=== PATIENT | female | born 1990 | race Caucasian/White ===

== ENCOUNTER 2019-05-19 17:02 | Inpatient (IN) | payer OTHER ==
[2019-05-19 17:40] VITALS: BMI 25.0
--- NOTE | 2019-05-19 19:04 | HP ---
CIWA Score - Admission Criteria OASAS Guidelines: Admission for Medically Managed Detox: Requires at least one of the followin. CIWA greater than 12 2. Seizures within the past 24 hours 3. Delirium tremens within the past 24 hours 4. Hallucinations within the past 24 hours 5. Acute intervention needed for co occurring medical disorder 6. Acute intervention needed for co occurring psychiatric disorder 7. Severe withdrawal that cannot be handled at a lower level of care (continued vomiting, continued diarrhea, abnormal vital signs) requiring intravenous medication and/or fluids 8. Admission ROS S - HPI Chief Complaint: Seeking rehab services. Allergies/Adverse Reactions: Allergies Allergy/AdvReac Type Severity Reaction Status Date / Time No Known Allergies Allergy Verified 05/19/19 17:28 History of Present Illness: 28 y.o. woman with an extensive history of marijuana and cocaine dependence is here seeking rehab services. She reports she was at [facility] for rehab one month ago but left AMA after 2 days. Reports the longest period of illicit drug abstinence has been 5 years. Exam Limitations: No Limitations - Ebola screening Have you traveled outside of the country in the last 21 days: No (N) Have you had contact with anyone from an Ebola affected area: No Do you have a fever: No - Review of Systems Constitutional: No Symptoms Reported EENT: reports: No Symptoms Reported Respiratory: reports: No Symptoms reported Cardiac: reports: No Symptoms Reported GI: reports: No Symptoms Reported : reports: No Symptoms Reported Musculoskeletal: reports: No Symptoms Reported Integumentary: reports: No Symptoms Reported Neuro: reports: No Symptoms reported Endocrine: reports: No Symptoms Reported Hematology: reports: No Symptoms Reported Psychiatric: reports: other (Schizo-affective.) Other Systems: Reviewed and Negative Patient History - Patient Medical History Hx Anemia: No Hx Asthma: No Hx Chronic Obstructive Pulmonary Disease (COPD): No Hx Cancer: No Hx Cardiac Disorders: No Hx Congestive Heart Failure: No Hx Hypertension: No Hx Hypercholesterolemia: No Hx Pacemaker: No HX Cerebrovascular Accident: No Hx Seizures: No Hx Dementia: No Hx Diabetes: No Hx Gastrointestinal Disorders: Yes Hx Liver Disease: No Hx Genitourinary Disorders: No Hx Sexually Transmitted Disorders: No Hx Renal Disease (ESRD): No Hx Thyroid Disease: No Hx Human Immunodeficiency Virus (HIV): No Hx Hepatitis C: No Hx Depression: No Hx Suicide Attempt: No Hx Bipolar Disorder: No Hx Schizophrenia: Yes - Patient Surgical History Past Surgical History: No - PPD History Previous Implant?: Yes Documented Results: Negative w/o proof PPD to be Administered?: Yes - Reproductive History Patient is a Female of Child Bearing Age (11 -55 yrs old): Yes Last Menstrual Period: 11/18/18 Patient : No - Smoking Cessation Smoking history: Current every day smoker Have you smoked in the past 12 months: Yes Aproximately how many cigarettes per day: 5 Initiated information on smoking cessation: Yes 'Breaking Loose' booklet given: 05/19/19 - Substance & Tx. History Hx Alcohol Use: No Hx Substance Use: Yes Substance Use Type: Cocaine, Marijuana Hx Substance Use Treatment: Yes (Reports she left rehab AMA 1 montha ago.) - Substances abused Marijuana/Hashish Substance route: Smoking Frequency: Daily Amount used: 2 JOINTS Age of first use: 15 Date of last use: 05/17/19 Cocaine Substance route: Inhalation Frequency: 1-3 times last 30 days Amount used: $200 Age of first use: 16 Date of last use: 05/17/19 Family Disease History - Family Disease History Family History: Denies Admission Physical Exam [facility] - Vital Signs Vital Signs: Vital Signs - 24 hr 05/19/19 17:23 Temperature 97.9 F Pulse Rate 69 Respiratory 17 Rate Blood Pressure 103/61 - Diagnostic (1) GERD (gastroesophageal reflux disease) Current Visit: Yes Status: Chronic (2) Nicotine dependence Current Visit: Yes Status: Chronic (3) Marijuana dependence Current Visit: Yes Status: Chronic (4) Cocaine dependence Current Visit: Yes Status: Chronic Cleared for Admission [facility] - Detox or Rehab [facility] Level of Care: Observation Bed Detox Regimen/Protocol: Not Applicable Claeared for Rehab Admission: Yes Breathalyzer - Breathalyzer Breathalyzer: 0 Urine Drug Screen - Test Device Lot number: [id number] Expiration date: 01/14/21 - Control Is test valid?: Yes - Results Drug screen NEGATIVE: No Urine drug screen results: THC-Marijuana, HALLE-Cocaine Inpatient Rehab Admission - Rehab Decision to Admit Inpatient rehab admission?: Yes - Initial Determination Are CD services needed?: Yes Free of communicable disease: Yes Not in need of hospitalization: Yes - Rehab Admission Criteria Previous failed treatment: Yes Poor recovery environment: Yes Comorbidities: Yes Lacks judgement: Yes Patient is meeting Inpatient Rehab admission criteria:: Yes
[2019-05-19] MEDS ORDERED: ACETAMINOPHEN 325 MG TABLET (FP) PO PRN (19:05)
[2019-05-19] MEDS ORDERED: guaiFENesin 200 MG/10 ML 10 ML UNIT-DOSE CUPS PO PRN (19:05)
[2019-05-19] MEDS ORDERED: MAG HYDROX/AL HYDROX/SIMETH 30 ML UNIT-DOSE CUP PO PRN (19:05)
[2019-05-19] MEDS ORDERED: MENTHOL/PHENOL 1 EACH UD MM PRN (19:05)
[2019-05-19] MEDS ORDERED: IBUPROFEN 400 MG TABLET (FP) PO PRN (19:05)
[2019-05-19] MEDS ORDERED: MAGNESIUM HYDROX 2400MG/30ML ORAL SUSPENSION 30 ML CUP PO PRN (19:05)
[2019-05-19] MEDS ORDERED: MAGNESIUM CITRATE 300 ML BOTTLE PO PRN (19:05)
[2019-05-19] MEDS ORDERED: P-EPHED 60MG/TRIPROLIDI 2.5MG TABLET PO PRN (19:05)
[2019-05-19] MEDS ORDERED: LOPERAMIDE HCL 2 MG CAPSULE PO PRN (19:05)
[2019-05-19] MEDS ORDERED: NICOTINE POLACRILEX 2 MG GUM BC PRN (19:05)
[2019-05-19] MEDS ORDERED: MELATONIN 5 MG TABLETS PO PRN (22:00)
[2019-05-19] MEDS: THIAMINE HCL 100 MG TABLET (FP) PO SCH (22:34)
[2019-05-20 09:34] LABS: PH,URINE 5.5 (5.0-8.0); URINE APPEARANCE TURBID; URINE BILIRUBIN NEGATIVE (NEGATIVE); URINE COLOR YELLOW; URINE GLUCOSE (UA) NEGATIVE (NEGATIVE); URINE KETONE NEGATIVE (NEGATIVE); URINE LEUK ESTERASE NEGATIVE (NEGATIVE); URINE NITRITE NEGATIVE (NEGATIVE); URINE PROTEIN NEGATIVE (NEGATIVE)
[2019-05-20] MEDS: PANTOPRAZOLE 20 MG TABLET (FP) PO SCH (10:10)
[2019-05-20] MEDS: PRENATAL VITAMINS W/ FOLIC ACID TABLET (FP) PO SCH (10:10)
[2019-05-20] MEDS: NICOTINE 14 MG/24 HOURS TOPICAL PATCH TD SCH (10:11)
--- NOTE | 2019-05-20 10:26 | EKG ---
Test Reason : Blood Pressure : / mmHG Vent. Rate : 070 BPM Atrial Rate : 070 BPM P-R Int : 138 ms QRS Dur : 084 ms QT Int : 404 ms P-R-T Axes : 058 068 042 degrees QTc Int : 436 ms NORMAL SINUS RHYTHM EARLY REPOLARIZATION NO PREVIOUS ECGS AVAILABLE Confirmed by RAIZA KIM MD ([id number]) on 05/20/2019 10:26:20 AM Referred By: Confirmed By:RAIZA KIM MD
[2019-05-20 13:12] LABS: HEMATOCRIT 38.6 % (32.4-45.2); HEMOGLOBIN 12.6 GM/dL (10.7-15.3); MCH 28.9 pg (25.7-33.7); MCHC 32.8 g/dl (32.0-36.0); MEAN CELL VOLUME 88.3 fl (80-96); MEAN PLT VOLUME 9.9 fl (7.5-11.1); RBC 4.37 M/mm3 (3.60-5.2); RDW 13.5 % (11.6-15.6); WHITE BLOOD COUNT 8.9 K/mm3 (4.0-10.0)
[2019-05-20 13:18] LABS: ALBUMIN 3.6 g/dl (3.4-5.0); BILIRUBIN,TOTAL 0.4 mg/dL (0.2-1); BLOOD UREA NITROGEN 16.7 mg/dL (7-18); CALCIUM 8.9 mg/dL (8.5-10.1); CREATININE 0.7 mg/dL (0.55-1.3); POTASSIUM 4.1 mmol/L (3.5-5.1); TOT PROT 6.4 g/dl (6.4-8.2)
[2019-05-20 13:40] LABS: PLATELET COUNT 201 K/MM3 (134-434)
--- NOTE | 2019-05-20 14:01 | PN ---
S Progress Note Note: Psychiatric nurse practitioner note: [employer]idential [employer] Consultant attempted to speak to patient concerning psychiatric consultation. Patient refused. Stated to science writer, "I'm exhausted. We can speak tomorrow."
[2019-05-20] MEDS: THIAMINE HCL 100 MG TABLET (FP) PO SCH (21:46)
[2019-05-21 06:51] VITALS: BP 133/87; PULSE 81; TEMP 97.1
--- NOTE | 2019-05-21 09:13 | CONSULT ---
[facility] Psychiatric Consult - Data Date of interview: 05/21/19 Admission source: [facility] Identifying data: Patient is a 28 year old single female, without children, unemployed, and is currently homeless. This is patient's first admission to rehab at [facility]. Patient admitted to for marijuana and cocaine dependence. Substance Abuse History: Substance & Tx. History. Hx Alcohol Use: No. Hx Substance Use: Yes. Substance Use Type: Cocaine, Marijuana. Hx Substance Use Treatment: Yes (Reports she left rehab AMA 1 montha ago.). - Substances abused. Marijuana/Hashish. Substance route: Smoking. Frequency: Daily. Amount used: 2 JOINTS. Age of first use: 15. Date of last use: 05/17/19. Cocaine. Substance route: Inhalation. Frequency: 1-3 times last 30 days. Amount used: $200. Age of first use: 16. Date of last use: 05/17/19 Medical History: Denies. Reports good health. Psychiatric History: Patient's first psychiatric contact was at 17 years of age after feeling depressed and sad. She reports being hospitalized at [facility] for two months and prescribed psychotropic medications. At 19 years of age she was admitted to [facility] for six months after a suicide attempt (refusing to elaborate on her suicide attempt). After discharge she reports admission to a transitional living residence for approximately 6-12 months. Ms. Long reports additional psychiatric hospitalizations at [facility] in [place] and other facilities in [facility]. Patient reports past trials of lithium, wellbutrin, haldol, and reports now taking abilify maintena. States she last received the medication in March at [facility] while seeking a psychiatric evaluation. She denies admission to the psychiatric unit. Ms. Long reports past diagnosis of depression, anxiety, bipolar and schizophrenia. Patient is currently perseverating that her diagnosis is no longer schizophrenia and bipolar disorder. States she only has depression and anxiety. Patient appears to be slighly internally preoccupied and was noted to smile and laugh inappropriately during her interaction with teletypewriter operator although denies h/o auditory halluincation. Ms. Long reports past history of being followed by the ACT team ( 4-5 years ago) and was once receiving outpatient psychiatric care from [facility] in [place]. Patient stated she would sol the hospital and teletypewriter operator if she was diagnosed with schizophrenia because the diagnosis is not true and it would prevent her from being accepted into a skilled nursing residental program. Patient focused on skilled nursing residental treatment. Patient did report h/o visual hallucination which occured once while in her 20's. At present, patient denies auditory/visual hallucinations and suicidal/homicidal ideation. [employer] Specialist able to contact [facility] Medical records department. Medical records faxed over and reviewed by teletypewriter operator. Patient with a past psychiatric history of schizoaffective disorder, bipolar type. Additional diagnosis of Bipolar disorder with psychotic features. Patient with a history of auditory hallucinations and mood dyregulation. Ms. Long has been treated with abilify + Depakote+ Vistaril + Ambien. She also has a history of accepting abilify maintena 400mg. Patient with a history of noncompliance to treatment. Patient's most recent psychiatric contact was at [facility]. As per Medical records she was prescribed abilify 10mg + Depakote 500mg BID. Plan was to consider Aristada Long acting injectable. No documentation of abilify maintena given in March of 2019 despite patient stating she last received the medication in March. Physical/Sexual Abuse/Trauma History: denies. Mental Status Exam - Mental Status Exam Alert and Oriented to: Time, Place, Person Cognitive Function: Good Patient Appearance: Well Groomed Mood: Anxious, Irritable (slightly irritable when discussing her diagnosis) Affect: Flat Patient Behavior: Cooperative, Agitated (Cooperative throughout the interview but became agitated when discussing medication and diagnosis.) Speech Pattern: Appropriate Voice Loudness: Normal Thought Process: Goal Oriented Thought Disorder: Present (Possibly Internally preoccupied. But in control. not acutely psychotic.) Hallucinations: Denies Suicidal Ideation: Denies Homicidal Ideation: Denies Insight/Judgement: Poor Sleep: Fair Appetite: Fair Muscle strength/Tone: Normal Gait/Station: Normal Psychiatric Findings - Problem List ([place] 1, 2,3) (1) Schizoaffective disorder, bipolar type Current Visit: Yes Status: Chronic (2) Cocaine dependence Current Visit: Yes Status: Chronic (3) Marijuana dependence Current Visit: Yes Status: Chronic (4) Nicotine dependence Current Visit: Yes Status: Chronic - Initial Treatment Plan Initial Treatment Plan: Psychoeducation provided. Rehab in progress. Contact made with [facility] medical records department. Medical records faxed over to [facility]. Medical records reviewed by teletypewriter operator. Will initate treatment with Abilify 10mg HS + Depakote 500mg BID. Benefits and side effects discussed. Verbal consent given.
[2019-05-21] MEDS: NICOTINE 14 MG/24 HOURS TOPICAL PATCH TD SCH (09:59)
[2019-05-21] MEDS: PRENATAL VITAMINS W/ FOLIC ACID TABLET (FP) PO SCH (10:00)
[2019-05-21] MEDS: PANTOPRAZOLE 20 MG TABLET (FP) PO SCH (10:00)
[2019-05-21] MEDS: DIVALPROEX SODIUM 500 MG TABLET E.C. PO SCH (21:18)
[2019-05-21] MEDS: THIAMINE HCL 100 MG TABLET (FP) PO SCH (21:18)
[2019-05-21] MEDS: ARIPiprazole 10 MG TABLET PO SCH (21:18)
[2019-05-21] MEDS: hydrOXYzine PAMOATE 50 MG CAPSULE (FP) PO PRN (21:19)
[2019-05-22] MEDS: NICOTINE 14 MG/24 HOURS TOPICAL PATCH TD SCH (09:43)
[2019-05-22] MEDS: PANTOPRAZOLE 20 MG TABLET (FP) PO SCH (09:43)
[2019-05-22] MEDS: PRENATAL VITAMINS W/ FOLIC ACID TABLET (FP) PO SCH (09:43)
[2019-05-22] MEDS: DIVALPROEX SODIUM 500 MG TABLET E.C. PO SCH ×2 (09:43→21:32)
[2019-05-22] MEDS: hydrOXYzine PAMOATE 50 MG CAPSULE (FP) PO PRN ×3 (10:21→22:08)
[2019-05-22] MEDS: THIAMINE HCL 100 MG TABLET (FP) PO SCH (21:32)
[2019-05-22] MEDS: ARIPiprazole 10 MG TABLET PO SCH (21:32)
[2019-05-23] MEDS: PANTOPRAZOLE 20 MG TABLET (FP) PO SCH (09:36)
[2019-05-23] MEDS: DIVALPROEX SODIUM 500 MG TABLET E.C. PO SCH (09:36)
[2019-05-23] MEDS: NICOTINE 14 MG/24 HOURS TOPICAL PATCH TD SCH (09:36)
[2019-05-23] MEDS: PRENATAL VITAMINS W/ FOLIC ACID TABLET (FP) PO SCH (09:36)
[2019-05-23] MEDS: hydrOXYzine PAMOATE 50 MG CAPSULE (FP) PO PRN (09:38)
--- NOTE | 2019-05-23 18:34 | PN ---
[facility] Progress Note Note: patient did not want to complete treatment,stated she is feeling well and would like to go home to stay with her boyfriend,the risk of relapsing is high patient understood,signed release AMA,stated she will see her own psychiatrist for follow up Vital Signs Temperature 97.1 F L 05/21/19 06:50 Pulse Rate 81 05/21/19 06:50 Respiratory Rate 18 05/23/19 07:07 Blood Pressure 133/87 05/21/19 06:50 O2 Sat by Pulse Oximetry (%) left the unit in good and stable condition
--- NOTE | 2019-05-23 18:35 | PN ---
[facility] Progress Note Note: this is the rehab discharge note date of admission 05/19/19 date of discharge 05/21/19 diagnosis cocaine dependence cannabis dependence gerd nicotine dependence schizoaffective disorder Vital Signs Temperature 97.1 F L 05/21/19 06:50 Pulse Rate 81 05/21/19 06:50 Respiratory Rate 18 05/23/19 07:07 Blood Pressure 133/87 05/21/19 06:50 O2 Sat by Pulse Oximetry (%) Laboratory Last Values WBC 8.9 K/mm3 (4.0-10.0) 05/20/19 08:00 RBC 4.37 M/mm3 (3.60-5.2) 05/20/19 08:00 Hgb 12.6 GM/dL (10.7-15.3) 05/20/19 08:00 Hct 38.6 % (32.4-45.2) 05/20/19 08:00 MCV 88.3 fl (80-96) 05/20/19 08:00 MCH 28.9 pg (25.7-33.7) 05/20/19 08:00 MCHC 32.8 g/dl (32.0-36.0) 05/20/19 08:00 RDW 13.5 % (11.6-15.6) 05/20/19 08:00 Plt Count 201 K/MM3 (134-434) 05/20/19 08:00 MPV 9.9 fl (7.5-11.1) 05/20/19 08:00 Sodium 143 mmol/L (136-145) 05/20/19 08:00 Potassium 4.1 mmol/L (3.5-5.1) 05/20/19 08:00 Chloride 112 mmol/L (98-107) H 05/20/19 08:00 Carbon Dioxide 26 mmol/L (21-32) 05/20/19 08:00 Anion Gap 5 MMOL/L (8-16) L 05/20/19 08:00 BUN 16.7 mg/dL (7-18) 05/20/19 08:00 Creatinine 0.7 mg/dL (0.55-1.3) 05/20/19 08:00 Est GFR (CKD-EPI)AfAm 134.75 05/20/19 08:00 Est GFR (CKD-EPI)NonAf 116.26 05/20/19 08:00 Random Glucose 78 mg/dL (74-106) 05/20/19 08:00 Calcium 8.9 mg/dL (8.5-10.1) 05/20/19 08:00 Total Bilirubin 0.4 mg/dL (0.2-1) 05/20/19 08:00 AST 18 U/L (15-37) 05/20/19 08:00 ALT 21 U/L (13-61) 05/20/19 08:00 Alkaline Phosphatase 63 U/L (45-117) 05/20/19 08:00 Total Protein 6.4 g/dl (6.4-8.2) 05/20/19 08:00 Albumin 3.6 g/dl (3.4-5.0) 05/20/19 08:00 Urine Color Yellow 05/19/19 23:19 Urine Appearance Turbid 05/19/19 23:19 Urine pH 5.5 (5.0-8.0) 05/19/19 23:19 Ur Specific Parker 1.031 (1.010-1.035) 05/19/19 23:19 Urine Protein Negative (NEGATIVE) 05/19/19 23:19 Urine Glucose (UA) Negative (NEGATIVE) 05/19/19 23:19 Urine Ketones Negative (NEGATIVE) 05/19/19 23:19 Urine Blood Negative (NEGATIVE) 05/19/19 23:19 Urine Nitrite Negative (NEGATIVE) 05/19/19 23:19 Urine Bilirubin Negative (NEGATIVE) 05/19/19 23:19 Urine Urobilinogen 1.0 mg/dL (0.2-1.0) 05/19/19 23:19 Ur Leukocyte Esterase Negative (NEGATIVE) 05/19/19 23:19 POC Urine HCG, Qual Negative 05/19/19 18:15 RPR Titer Nonreactive (NONREACTIVE) 05/20/19 08:00 TB (QFT) Incubation (.) 05/20/19 09:00 TB Test (QFT) Nil 0.02 IU/mL (.) 05/20/19 09:00 TB Test (QFT) Mitogen 0.82 IU/mL (.) 05/20/19 09:00 TB Test (QFT) Antigen 0.02 IU/mL (.) 05/20/19 09:00 TB Test (QFT) Negative (Negative) 05/20/19 09:00 TB Positive Criteria (.) 05/20/19 09:00 patient signed release AMA left unit in good and stable condition
== END 2019-05-23 21:42 | disposition left against medical advice (07) | DRG 770 ==
LOC: YASAS 17:02 → Y3E 19:20
PROVIDERS: ADMIT Neuromusculoskeletal Medicine & OMM; ATTEND Neuromusculoskeletal Medicine & OMM
PROC: HZ42ZZZ Group Counseling for Substance Abuse Treatment, Cognitive-Behavioral (ICD-10-PCS; principal; 2019-05-19)
DX: F14.20 Cocaine dependence, uncomplicated (principal); F12.20 Cannabis dependence, uncomplicated; F17.210 Nicotine dependence, cigarettes, uncomplicated; F25.0 Schizoaffective disorder, bipolar type; K21.9 Gastro-esophageal reflux disease without esophagitis
CPT/HCPCS: 36415; 80053; 81003; 81025; 85027; 86480; 86593; 93005; 93010

== ENCOUNTER 2019-12-03 16:59 | Inpatient (IN) | payer OTHER ==
[2019-12-03 19:03] VITALS: BMI 25.9
--- NOTE | 2019-12-03 20:59 | HP ---
CIWA Score - Admission Criteria OASAS Guidelines: Admission for Medically Managed Detox: Requires at least one of the followin. CIWA greater than 12 2. Seizures within the past 24 hours 3. Delirium tremens within the past 24 hours 4. Hallucinations within the past 24 hours 5. Acute intervention needed for co occurring medical disorder 6. Acute intervention needed for co occurring psychiatric disorder 7. Severe withdrawal that cannot be handled at a lower level of care (continued vomiting, continued diarrhea, abnormal vital signs) requiring intravenous medication and/or fluids 8. Admitting History and Physical - Past Medical History ...LMP: 11/18/18 - Smoking History Smoking history: Current every day smoker Have you smoked in the past 12 months: Yes Aproximately how many cigarettes per day: 5 - Alcohol/Substance Use Hx Alcohol Use: No Admission ROS S - HPI Chief Complaint: Seeking admission to Rehab. Allergies/Adverse Reactions: Allergies Allergy/AdvReac Type Severity Reaction Status Date / Time No Known Allergies Allergy Verified 12/03/19 18:40 History of Present Illness: 29 years old female with 6 years history of benzodiazepine, cocaine and marijuana dependence is seeking admission to Rehab. Patient was admitted to Rehab. in May 2019 and left after 4 days. She has promised to complete Rehab. this time. She reports medical history of GERD and psych history of borderline personality disorder and schizophrenia. She denies suicidal ideation at this time. Patient is unemployed and reports that she resides with a friend Confidential Drug Utilization Report Search Terms: liliana melendrez, 1990 Search Date: 12/03/2019 08:58:07 PM The Drug Utilization Report below displays all of the controlled substance prescriptions, if any, that your patient has filled in the last twelve months. The information displayed on this report is compiled from pharmacy submissions to the Department, and accurately reflects the information as submitted by the pharmacies. There are no results for the search terms that you entered. 2017 [facility] Department of Health - [place] of Narcotic Enforcement 12/03/2019 20:58:07 Exam Limitations: No Limitations - Ebola screening Have you traveled outside of the country in the last 21 days: No (N) Have you had contact with anyone from an Ebola affected area: No Do you have a fever: No - Review of Systems Constitutional: No Symptoms Reported EENT: reports: No Symptoms Reported Respiratory: reports: No Symptoms reported Cardiac: reports: No Symptoms Reported GI: reports: No Symptoms Reported : reports: No Symptoms Reported Musculoskeletal: reports: No Symptoms Reported Integumentary: reports: No Symptoms Reported Neuro: reports: No Symptoms reported Endocrine: reports: No Symptoms Reported Hematology: reports: No Symptoms Reported Psychiatric: reports: No Sypmtoms Reported, Mood/Affect Appropiate, Orientated x3 Other Systems: Reviewed and Negative Patient History - Patient Medical History Hx Anemia: No Hx Asthma: No Hx Chronic Obstructive Pulmonary Disease (COPD): No Hx Cancer: No Hx Cardiac Disorders: No Hx Congestive Heart Failure: No Hx Hypertension: No Hx Hypercholesterolemia: No Hx Pacemaker: No HX Cerebrovascular Accident: No Hx Seizures: No Hx Dementia: No Hx Diabetes: No Hx Gastrointestinal Disorders: Yes (GERD- not on medication) Hx Liver Disease: No Hx Genitourinary Disorders: No Hx Sexually Transmitted Disorders: No Hx Renal Disease (ESRD): No Hx Thyroid Disease: No Hx Human Immunodeficiency Virus (HIV): No Hx Hepatitis C: No Hx Depression: No Hx Suicide Attempt: No Hx Bipolar Disorder: No Hx Schizophrenia: Yes Other Medical History: Borderline Personality disorder - Patient Surgical History Past Surgical History: Yes Hx Neurologic Surgery: No Hx Cataract Extraction: No Hx Cardiac Surgery: No Hx Lung Surgery: No Hx Breast Surgery: No Hx Breast Biopsy: No Hx Abdominal Surgery: No Hx Appendectomy: No Hx Cholecystectomy: No Hx Genitourinary Surgery: No Hx Section: No Hx Orthopedic Surgery: No Other Surgical History: LOW BACK SURGERY AT AGE 19 Anesthesia Reaction: No - PPD History Previous Implant?: Yes Documented Results: Negative w/o proof Implanted On Prior [facility] Admission?: No PPD to be Administered?: Yes - Reproductive History Patient is a Female of Child Bearing Age (11 -55 yrs old): Yes Last Menstrual Period: 07/18/19 LMP comment: IRREGULAR PERIOD. NOT ON CONTROL - Smoking Cessation Smoking history: Current every day smoker Have you smoked in the past 12 months: Yes Aproximately how many cigarettes per day: 5 Hx Chewing Tobacco Use: No Initiated information on smoking cessation: Yes 'Breaking Loose' booklet given: 12/03/19 - Substance & Tx. History Hx Alcohol Use: No Substance Use Type: Cocaine, Marijuana, Tranquilizers Hx Substance Use Treatment: Yes ([facility]) - Substances abused Cocaine Substance route: Inhalation Frequency: 1-3 times last 30 days Amount used: 300 to 500 dollars a time. Age of first use: 15 Date of last use: 11/17/19 Marijuana/Hashish Substance route: Smoking Frequency: Daily Amount used: 30 dollars Age of first use: 16 Date of last use: 12/02/19 Other Other (specify): Ativan Substance route: Oral Frequency: 1-2 times per week Amount used: 1 mg Age of first use: 23 Date of last use: 12/03/19 Benzodiazepine (Klonopin) Substance route: Oral Frequency: Daily Amount used: 1 mg Age of first use: 23 Date of last use: 11/19/[address] [facility] - Vital Signs Vital Signs: Vital Signs - 24 hr 12/03/19 18:37 Temperature 96.6 F L Pulse Rate 84 Respiratory 16 Rate Blood Pressure 116/75 - Physical General Appearance: Yes: Within Normal Limits HEENTM: Yes: Within Normal Limits Respiratory: Yes: Lungs Clear, Normal Breath Sounds, No Respiratory Distress Neck: Yes: Within Normal Limits Breast: Yes: Breast Exam Deferred Abdominal: Yes: Normal Bowel Sounds, Soft Genitourinary: Yes: Within Normal Limits Back: Yes: Normal Inspection Musculoskeletal: Yes: Within Normal Limits Extremities: Yes: Within Normal Limits, Normal Inspection Neurological: Yes: Alert, Normal Mood/Affect Integumentary: Yes: Warm Lymphatic: Yes: Within Normal Limits - Diagnostic (1) Borderline personality disorder Current Visit: Yes Status: Chronic (2) Cocaine dependence Current Visit: Yes Status: Chronic (3) GERD (gastroesophageal reflux disease) Current Visit: Yes Status: Chronic Qualifiers: Esophagitis presence: esophagitis presence not specified Qualified Code(s) : K21.9 - Gastro-esophageal reflux disease without esophagitis (4) Marijuana dependence Current Visit: Yes Status: Chronic (5) Nicotine dependence Current Visit: Yes Status: Chronic Qualifiers: Nicotine product type: cigarettes Substance use status: uncomplicated Qualified Code(s): F17.210 - Nicotine dependence, cigarettes, uncomplicated Cleared for Admission [facility] - Detox or Rehab [facility] Level of Care: Observation Bed Claeared for Rehab Admission: Yes Breathalyzer - Breathalyzer Breathalyzer: 0 Urine Drug Screen - Test Device Lot number: [id number] Expiration date: 06/16/21 - Control Is test valid?: Yes - Results Drug screen NEGATIVE: No Urine drug screen results: THC-Marijuana, BZO-Benzodiazepines Inpatient Rehab Admission - Rehab Decision to Admit Inpatient rehab admission?: No - Initial Determination Are CD services needed?: No Free of communicable disease: Yes Not in need of hospitalization: Yes - Rehab Admission Criteria Previous failed treatment: Yes Poor recovery environment: Yes Comorbidities: Yes Lacks judgement: No Patient is meeting Inpatient Rehab admission criteria:: Yes
[2019-12-03] MEDS ORDERED: IBUPROFEN 400 MG TABLET (FP) PO PRN (21:25)
[2019-12-03] MEDS ORDERED: NICOTINE POLACRILEX 2 MG GUM BUC PRN (21:25)
[2019-12-03] MEDS ORDERED: P-EPHED 60MG/TRIPROLIDI 2.5MG TABLET PO PRN (21:25)
[2019-12-03] MEDS ORDERED: LOPERAMIDE HCL 2 MG CAPSULE PO PRN (21:25)
[2019-12-03] MEDS ORDERED: MENTHOL/PHENOL 1 EACH UD MM PRN (21:25)
[2019-12-03] MEDS ORDERED: hydrOXYzine PAMOATE 25 MG CAPSULE (FP) PO PRN (21:25)
[2019-12-03] MEDS ORDERED: MAGNESIUM CITRATE 300 ML BOTTLE PO PRN (21:25)
[2019-12-03] MEDS ORDERED: ACETAMINOPHEN 325 MG TABLET (FP) PO PRN (21:25)
[2019-12-03] MEDS ORDERED: guaiFENesin 200 MG/10 ML 10 ML UNIT-DOSE CUPS PO PRN (21:25)
[2019-12-03] MEDS ORDERED: MAGNESIUM HYDROX 2400MG/30ML ORAL SUSPENSION 30 ML CUP PO PRN (21:25)
[2019-12-03] MEDS ORDERED: MELATONIN 5 MG TABLETS PO PRN (22:00)
[2019-12-03] MEDS ORDERED: TUBERCULIN PPD 5 TU/0.1ML VIAL ID ONE (22:17)
[2019-12-03] MEDS: THIAMINE HCL 100 MG TABLET (FP) PO SCH (22:37)
[2019-12-04] MEDS: NICOTINE 14 MG/24 HOURS TOPICAL PATCH TD SCH (10:19)
[2019-12-04] MEDS: PRENATAL VITAMINS W/ FOLIC ACID TABLET (FP) PO SCH (10:19)
[2019-12-04 11:38] LABS: HEMATOCRIT 38.1 % (32.4-45.2); HEMOGLOBIN 12.5 GM/dL (10.7-15.3); MCH 28.9 pg (25.7-33.7); MCHC 32.8 g/dl (32.0-36.0); MEAN CELL VOLUME 88.3 fl (80-96); MEAN PLT VOLUME 10.4 fl (7.5-11.1); PLATELET COUNT 228 K/MM3 (134-434); RBC 4.31 M/mm3 (3.60-5.2); RDW 13.1 % (11.6-15.6); WHITE BLOOD COUNT 11.6 K/mm3 (4.0-10.0)
[2019-12-04 11:50] LABS: ALBUMIN 3.4 g/dl (3.4-5.0); BILIRUBIN,TOTAL 0.5 mg/dL (0.2-1); BLOOD UREA NITROGEN 14.5 mg/dL (7-18); CALCIUM 9.1 mg/dL (8.5-10.1); CREATININE 0.8 mg/dL (0.55-1.3); POTASSIUM 4.9 mmol/L (3.5-5.1); TOT PROT 6.3 g/dl (6.4-8.2)
--- NOTE | 2019-12-04 13:16 | EKG ---
Test Reason : Blood Pressure : / mmHG Vent. Rate : 071 BPM Atrial Rate : 071 BPM P-R Int : 144 ms QRS Dur : 084 ms QT Int : 402 ms P-R-T Axes : 057 064 033 degrees QTc Int : 436 ms NORMAL SINUS RHYTHM NORMAL ECG WHEN COMPARED WITH ECG OF 19-MAY-2019 19:18, NO SIGNIFICANT CHANGE WAS FOUND Confirmed by ROSA ANTOINE MD ([id number]) on 12/04/2019 1:16:44 PM Referred By: Confirmed By:ROSA ANTOINE MD
[2019-12-04 13:49] LABS: EPI CELLS >36 /HPF (0-5/HPF); HYALINE CASTS 18 /lpf (0-8); URINE APPEARANCE TURBID; URINE BACTERIA 1091.1 /hpf (NEGATIVE); URINE BILIRUBIN NEGATIVE (NEGATIVE); URINE COLOR YELLOW; URINE GLUCOSE (UA) NEGATIVE (NEGATIVE); URINE KETONE NEGATIVE (NEGATIVE); URINE LEUK ESTERASE TRACE (NEGATIVE); URINE NITRITE NEGATIVE (NEGATIVE); URINE PROTEIN NEGATIVE (NEGATIVE); URINE RBC 2 /hpf (0-4); URINE UROBILINOGEN 0.2 mg/dL (0.2-1.0); URINE WBC 11 /hpf (0-5)
[2019-12-04] MEDS ORDERED: PT OWN MED DRAWER 7, Y5N ONE (14:15)
--- NOTE | 2019-12-04 16:36 | CONSULT ---
[facility] Psychiatric Consult - Data Date of interview: 12/04/19 Admission source: [facility] Identifying data: Revisit to [facility] and direct admission from [facility] (inpatient psychiatric service) to [address] for this 29 y/o [place]-born female seeking preservation of sobriety + continuity of care for MJ issues (cannabis, cocaine, benzodiazepines, nicotine) co-morbid with bipolar disorder. Patient is single, no depedents, domiciled (lives with fiance), unemployed and supported on SSI benefits. Substance Abuse History: Discussed with the patient. Details in current [facility] report as follows : Smoking history: Current every day smoker. Have you smoked in the past 12 months: Yes. Aproximately how many cigarettes per day: 5. Hx Chewing Tobacco Use: No. Initiated information on smoking cessation: Yes. ' Breaking Loose' booklet given: 12/03/19. - Substance & Tx. History. Hx Alcohol Use: No. Substance Use Type: Cocaine, Marijuana, Tranquilizers. Hx Substance Use Treatment: Yes ([facility]). - Substances abused. * * Cocaine. Substance route: Inhalation. Frequency: 1-3 times last 30 days. Amount used: 300 to 500 dollars a time. Age of first use: 15. Date of last use : 11/17/19. Marijuana/Hashish. Substance route: Smoking. Frequency: Daily. Amount used: 30 dollars. Age of first use: 16. Date of last use: 12/02. Other. Other (specify): Ativan. Substance route: Oral. Frequency: 1- 2 times per week. Amount used: 1 mg. Age of first use: 23. Date of last use: 12/03/19. Benzodiazepine (Klonopin). Substance route: Oral. Frequency: Daily. Amount used: 1 mg. Age of first use: 23. Date of last use: 11/19/19 Medical History: Patient endorses good general health. Noted antecedent of back surgery (age 19). Psychiatric History: Early onset of psychiatric disturbances (mood dysregulation ) : patient was committed to the psychiatric inpatient service, at [facility], age 17, for two consecutive months. Two years later, age 19, she got admitted to [facility] for six months after a serious suicide attempt (jumping from a window). Ms Long endorses a history of multiple psychiatric hospitalizations ([facility], [facility], [facility] in [place], [facility] , [facility] in [place] and many other unnamed institutions). Reportedly diagnosed with Bipolar Disorder and Borderline Personality Disorder. Noted history of trials with lithium, wellbutrin, haldol and aripriprazole. In this interview, the patient reports that she got " just " discharged from [facility] on a regimen of haloperidol 5 mg/tid + depakote 250 mg/bid + olanzapine 10 mg/daily + trazodone 100 mg/hs. Patient aknowledges a distant history of one suicide attempt via " jumping from a high place " but she declines to provide details. Patient remains vague about current OPD care. Physical/Sexual Abuse/Trauma History: Not discussed. Patient declines. Additional Comment: Urine drug screen results: THC-Marijuana, BZO- Benzodiazepines. Noted. Mental Status Exam - Mental Status Exam Alert and Oriented to: Time, Place, Person Cognitive Function: Good Patient Appearance: Well Groomed (overweight) Mood: Withdrawn, Anxious Affect: Mood Congruent, Constricted Patient Behavior: Fatigued, Appropriate, Cooperative Speech Pattern: Clear, Appropriate Voice Loudness: Normal Thought Process: Goal Oriented Thought Disorder: Not Present Hallucinations: Denies Suicidal Ideation: Denies Homicidal Ideation: Denies Insight/Judgement: Fair Sleep: Poorly, Difficulty falling asleep Appetite: Good Gait/Station: Normal Psychiatric Findings - Problem List (Calcium 1, 2,3) (1) Schizoaffective disorder, bipolar type Current Visit: Yes Status: Chronic (2) Benzodiazepine dependence Current Visit: Yes Status: Chronic (3) Cocaine dependence Current Visit: Yes Status: Chronic (4) Marijuana dependence Current Visit: Yes Status: Chronic (5) Nicotine dependence Current Visit: Yes Status: Chronic Qualifiers: Nicotine product type: cigarettes Substance use status: uncomplicated Qualified Code(s): F17.210 - Nicotine dependence, cigarettes, uncomplicated (6) Substance induced mood disorder Current Visit: Yes Status: Chronic (7) Insomnia Current Visit: Yes Status: Chronic (8) Non-compliance Current Visit: Yes Status: Suspected - Initial Treatment Plan Initial Treatment Plan: Records ([facility]) revisited. test (12/03/19) : negative. Consult note of 05/21/19 by organ installer Rosalinda : read and appreciated. Patient is interviewed in the presence of female chief nursing executive , Chelsy Kearney (with patient's verbal consent). Psychoeducation. Sleep hygiene. Support provided. Patient INSISTS on resuming olanzapine 10 mg po daily + trazodone 100 mg po hs + depakote 250 mg po bid + haldol 5 mg po tid. " This combination helps me best ". Side effects/benefits of each drug are discussed with the patient. She is made aware of the potential for EPS (dystonia , akathisia, akinesia, tardive dyskinesia), neuroleptic malignant syndrome, liver dysfunction, blood dyscrasias, alopecia, metabolic syndrome and cardiovascular adverse events. Ms Long is in agreement with this plan of care. Gave her informed consent (verbal) to MD. Request made for valproic acid level. Observation.
[2019-12-04] MEDS: HALOPERIDOL 5 MG TABLET PO PRN (17:49)
[2019-12-04] MEDS: DIVALPROEX SODIUM 250 MG TABLET E.C. PO SCH (22:04)
[2019-12-04] MEDS: traZODone HCL 100 MG TABLET (FP) PO SCH (22:04)
[2019-12-04] MEDS: THIAMINE HCL 100 MG TABLET (FP) PO SCH (22:04)
[2019-12-05] MEDS: HALOPERIDOL 5 MG TABLET PO PRN ×2 (07:23→14:59)
[2019-12-05] MEDS: OLANZapine 10 MG TABLET PO SCH (10:20)
[2019-12-05] MEDS: NICOTINE 14 MG/24 HOURS TOPICAL PATCH TD SCH (10:20)
[2019-12-05] MEDS: DIVALPROEX SODIUM 250 MG TABLET E.C. PO SCH ×2 (10:20→22:22)
[2019-12-05] MEDS: PRENATAL VITAMINS W/ FOLIC ACID TABLET (FP) PO SCH (10:20)
[2019-12-05] MEDS ORDERED: PT OWN MED DRAWER 7, Y5N ONE (14:59)
[2019-12-05] MEDS: THIAMINE HCL 100 MG TABLET (FP) PO SCH (22:22)
[2019-12-05] MEDS: traZODone HCL 100 MG TABLET (FP) PO SCH (22:22)
[2019-12-06] MEDS ORDERED: PT OWN MED DRAWER 7, Y5N ONE ×2 (08:01→16:17)
[2019-12-06] MEDS: HALOPERIDOL 5 MG TABLET PO PRN ×2 (08:03→16:17)
[2019-12-06] MEDS: NICOTINE 14 MG/24 HOURS TOPICAL PATCH TD SCH (09:09)
[2019-12-06] MEDS: DIVALPROEX SODIUM 250 MG TABLET E.C. PO SCH ×2 (09:09→21:32)
[2019-12-06] MEDS: PRENATAL VITAMINS W/ FOLIC ACID TABLET (FP) PO SCH (09:09)
[2019-12-06] MEDS: OLANZapine 10 MG TABLET PO SCH (09:10)
--- NOTE | 2019-12-06 12:40 | PN ---
[facility] Progress Note Note: Patient is a 29 year old female admitted to rehab for cocaine, BZO and THC dependence. PMH includes GERD, Borderline Personality disorder and Schizophrenia. Laboratory Tests 12/03/19 12/04/19 12/04/19 20:42 07:00 07:30 WBC 11.6 H RBC 4.31 Hgb 12.5 Hct 38.1 MCV 88.3 MCH 28.9 MCHC 32.8 RDW 13.1 Plt Count 228 MPV 10.4 Sodium Potassium Chloride Carbon Dioxide Anion Gap BUN Creatinine Est GFR (CKD-EPI)AfAm Est GFR (CKD-EPI)NonAf Random Glucose Calcium Total Bilirubin AST ALT Alkaline Phosphatase Total Protein Albumin Urine Color Yellow Urine Appearance Turbid Urine pH 5.0 Ur Specific [place] 1.025 Urine Protein Negative Urine Glucose (UA) Negative Urine Ketones Negative Urine Blood Negative Urine Nitrite Negative Urine Bilirubin Negative Urine Urobilinogen 0.2 Ur Leukocyte Esterase Trace Urine WBC (Auto) 11 Urine RBC (Auto) 2 Urine Casts (Auto) 18 U Pathogenic Cast Auto None seen U Epithel Cells (Auto) >36 Urine Bacteria (Auto) 1091.1 POC Urine HCG, Qual Negative RPR Titer 12/04/19 12/04/19 07:30 07:30 WBC RBC Hgb Hct MCV MCH MCHC RDW Plt Count MPV Sodium 141 Potassium 4.9 Chloride 108 H Carbon Dioxide 29 Anion Gap 3 L BUN 14.5 Creatinine 0.8 Est GFR (CKD-EPI)AfAm 113.86 Est GFR (CKD-EPI)NonAf 98.24 Random Glucose 82 Calcium 9.1 Total Bilirubin 0.5 AST 14 L ALT 22 Alkaline Phosphatase 65 Total Protein 6.3 L Albumin 3.4 Urine Color Urine Appearance Urine pH Ur Specific [place] Urine Protein Urine Glucose (UA) Urine Ketones Urine Blood Urine Nitrite Urine Bilirubin Urine Urobilinogen Ur Leukocyte Esterase Urine WBC (Auto) Urine RBC (Auto) Urine Casts (Auto) U Pathogenic Cast Auto U Epithel Cells (Auto) Urine Bacteria (Auto) POC Urine HCG, Qual RPR Titer Nonreactive Vital Signs Period Temp Pulse Resp BP Sys/Valencia Pulse Ox Last 24 Hr 97.8 F 92 18-18 138/82 ROS: patient denies physical complaints, anxiety and shakes at this time. PE: alert and oriented x 3 skin warm and dry +eoms intact bl car s1s2 resp cta bl ext no tremors, amb ad luciano A/P: Cocaine/BZO/THC dependence continue rehab services
[2019-12-06] MEDS: traZODone HCL 100 MG TABLET (FP) PO SCH (21:32)
[2019-12-06] MEDS: THIAMINE HCL 100 MG TABLET (FP) PO SCH (21:32)
[2019-12-07] MEDS ORDERED: PT OWN MED DRAWER 7, Y5N ONE ×3 (07:02→18:37)
[2019-12-07] MEDS: HALOPERIDOL 5 MG TABLET PO PRN ×3 (07:07→18:46)
[2019-12-07] MEDS: DIVALPROEX SODIUM 250 MG TABLET E.C. PO SCH ×2 (10:05→23:39)
[2019-12-07] MEDS: NICOTINE 14 MG/24 HOURS TOPICAL PATCH TD SCH (10:05)
[2019-12-07] MEDS: PRENATAL VITAMINS W/ FOLIC ACID TABLET (FP) PO SCH (10:06)
[2019-12-07] MEDS: OLANZapine 10 MG TABLET PO SCH (10:06)
--- NOTE | 2019-12-07 11:47 | PN ---
S Progress Note (SOAP) Subjective: Called to see patient who was with the counselor and during a distressful discussion, experienced her eyes rolling back in her head, shaking of right foot , and reported "hallucinations- seeing things that upset me and I do not want to talk about them." States she is seeing shapes. States this has happened to her before, when crossing the street, denies effects of haldol in the past. Reports she was given a medication other than cogentin while in the psychiatric hospital but does not know the name of it. Her depakote level is 3.1, she is taking this for bipiolar disorder (?). Denies history of seizures. Objective: 12/07/19 11:47 Laboratory Last Values WBC 11.6 K/mm3 (4.0-10.0) H 12/04/19 07:30 RBC 4.31 M/mm3 (3.60-5.2) 12/04/19 07:30 Hgb 12.5 GM/dL (10.7-15.3) 12/04/19 07:30 Hct 38.1 % (32.4-45.2) 12/04/19 07:30 MCV 88.3 fl (80-96) 12/04/19 07:30 MCH 28.9 pg (25.7-33.7) 12/04/19 07:30 MCHC 32.8 g/dl (32.0-36.0) 12/04/19 07:30 RDW 13.1 % (11.6-15.6) 12/04/19 07:30 Plt Count 228 K/MM3 (134-434) 12/04/19 07:30 MPV 10.4 fl (7.5-11.1) 12/04/19 07:30 Sodium 141 mmol/L (136-145) 12/04/19 07:30 Potassium 4.9 mmol/L (3.5-5.1) 12/04/19 07:30 Chloride 108 mmol/L (98-107) H 12/04/19 07:30 Carbon Dioxide 29 mmol/L (21-32) 12/04/19 07:30 Anion Gap 3 MMOL/L (8-16) L 12/04/19 07:30 BUN 14.5 mg/dL (7-18) 12/04/19 07:30 Creatinine 0.8 mg/dL (0.55-1.3) 12/04/19 07:30 Est GFR (CKD-EPI)AfAm 113.86 12/04/19 07:30 Est GFR (CKD-EPI)NonAf 98.24 12/04/19 07:30 Random Glucose 82 mg/dL (74-106) 12/04/19 07:30 Calcium 9.1 mg/dL (8.5-10.1) 12/04/19 07:30 Total Bilirubin 0.5 mg/dL (0.2-1) 12/04/19 07:30 AST 14 U/L (15-37) L 12/04/19 07:30 ALT 22 U/L (13-61) 12/04/19 07:30 Alkaline Phosphatase 65 U/L (45-117) 12/04/19 07:30 Total Protein 6.3 g/dl (6.4-8.2) L 12/04/19 07:30 Albumin 3.4 g/dl (3.4-5.0) 12/04/19 07:30 Urine Color Yellow 12/04/19 07:00 Urine Appearance Turbid 12/04/19 07:00 Urine pH 5.0 (5.0-8.0) 12/04/19 07:00 Ur Specific [place] 1.025 (1.010-1.035) 12/04/19 07:00 Urine Protein Negative (NEGATIVE) 12/04/19 07:00 Urine Glucose (UA) Negative (NEGATIVE) 12/04/19 07:00 Urine Ketones Negative (NEGATIVE) 12/04/19 07:00 Urine Blood Negative (NEGATIVE) 12/04/19 07:00 Urine Nitrite Negative (NEGATIVE) 12/04/19 07:00 Urine Bilirubin Negative (NEGATIVE) 12/04/19 07:00 Urine Urobilinogen 0.2 mg/dL (0.2-1.0) 12/04/19 07:00 Ur Leukocyte Esterase Trace (NEGATIVE) 12/04/19 07:00 Urine WBC (Auto) 11 /hpf (0-5) 12/04/19 07:00 Urine RBC (Auto) 2 /hpf (0-4) 12/04/19 07:00 Urine Casts (Auto) 18 /lpf (0-8) 12/04/19 07:00 U Pathogenic Cast Auto None seen /lpf (NEGATIVE) 12/04/19 07:00 U Epithel Cells (Auto) >36 /HPF (0-5/HPF) 12/04/19 07:00 Urine Bacteria (Auto) 1091.1 /hpf (NEGATIVE) 12/04/19 07:00 POC Urine HCG, Qual Negative 12/03/19 20:42 Valproic Acid 3.1 ug/mL (50-100) L 12/06/19 05:30 RPR Titer Nonreactive (NONREACTIVE) 12/04/19 07:30 12/07/19 11:47 Vital Signs Period Temp Pulse Resp BP Sys/Valencia Pulse Ox Last 24 Hr 97.6 F-97.8 F 85-93 16-18 117-121/75-83 P/E: General: no apparent distress HEENTM: PERRLA, EOMs. Neck: supple Lungs: clear Heart: s1 s2, regular ABD: soft, non-tender, +BS Neuro: Cn 2-12 intact, Muscle strength 5/5, A+O x3, coherent Assessment: Potential seizure v. dystonia effects of haldol 12/07/19 11:49 Plan: patient is resting comfortably at present psych consult initiated.
--- NOTE | 2019-12-07 13:18 | PN ---
Psychiatric Progress Note Vital Signs: Vital Signs Period Temp Pulse Resp BP Sys/Valencia Pulse Ox Last 24 Hr 97.6 F-97.8 F 85-93 16-18 117-121/75-83 Date of Session: 12/07/19 Chief Complaint:: " My eyes roll back." HPI: Patient admitted to for MJ issues (cannabis, cocaine, benzodiazepines , nicotine) co-morbid with bipolar disorder. Consultation ordered after it was observed that patient's eyes rolled upwards and backward. ROS: Patient alert + oriented X3. Current Medications: Active Medications Generic Name Dose Route Start Last Admin Trade Name Freq PRN Reason Stop Dose Admin Acetaminophen 650 mg 12/03/19 21:25 Tylenol - PO Q4H PRN FEVER Al Hydroxide/Mg Hydroxide 30 ml 12/03/19 21:25 Mylanta Oral Suspension - PO Q6H PRN DYSPEPSIA Benztropine Mesylate 1 mg 12/07/19 13:08 Cogentin - PO Q8H PRN EPS Divalproex Sodium 250 mg 12/04/19 22:00 12/07/19 10:05 Depakote - PO 250 mg BID VELASQUEZ Administration Eucalyptus/Menthol/Phenol/Sorbitol 1 each 12/03/19 21:25 Cepastat Lozenge - MM Q4H PRN SORE THROAT Guaifenesin 10 ml 12/03/19 21:25 Robitussin - PO Q6H PRN COUGH Haloperidol 5 mg 12/04/19 16:51 12/07/19 07:07 Haldol - PO 5 mg Q8H PRN Administration AGITATION Ibuprofen 400 mg 12/03/19 21:25 Motrin - PO Q6H PRN Pain level 4-6 Loperamide HCl 4 mg 12/03/19 21:25 Imodium - PO Q6H PRN DIARRHEA Magnesium Citrate 300 ml 12/03/19 21:25 Citroma - PO Q48H PRN CONSTIPATION Magnesium Hydroxide 30 ml 12/03/19 21:25 Milk Of Magnesia - PO DAILY PRN CONSTIPATION Melatonin 5 mg 12/03/19 22:00 12/03/19 22:39 Melatonin PO 5 mg HS PRN Administration INSOMNIA Nicotine 14 mg 12/04/19 10:00 12/07/19 10:05 Nicoderm Patch - TD 14 mg DAILY VELASQUEZ Administration Nicotine Polacrilex 2 mg 12/03/19 21:25 Nicorette Gum - BUC Q2H PRN NICOTINE REPLACEMENT RX Olanzapine 10 mg 12/05/19 10:00 12/07/19 10:06 Zyprexa - PO 10 mg DAILY VELASQUEZ Administration Multivit/Folic Acid/Iron 1 tab 12/04/19 10:00 12/07/19 10:06 Vitamins (Sjr) - PO 1 tab DAILY VELASQUEZ Administration Pseudoephedrine/Triprolidine 1 combo 12/03/19 21:25 Actifed - PO TID PRN NASAL CONGESTION Thiamine HCl 100 mg 12/03/19 22:00 12/06/19 21:32 Vitamin B1 - PO 100 mg HS VELASQUEZ Administration Trazodone HCl 100 mg 12/04/19 22:00 12/06/19 21:32 Desyrel - PO 100 mg HS VELASQUEZ Administration Medication(s) Change(s): Yes. Will add congentin 1mg PRN Q8H. To give with haldol 5mg PRN. Current Side Effect: No Lab tests ordered: No Lab tests reviewed: Yes Provider note:: Patient seen by Dr. Kennedy. Dr. Kennedy note read and appreciated. Consultation ordered after patient's "eyes went towards the back of her head". Questionable oculogric crisis as patient was calm, did not complain of any pain, and problem resolved without medications. As per nursing staff after the problem resolved it occured again. Patient informed data analyst report writer that her eyes roll upwards even when she is not accepting psychotropic medications. States that it has happened several times and it resolves on its own. Denies history of seizures. Patient has accepted several doses of zyprexa and haldol before this occured. For now will add cogentin 1mg Q8H. Congentin 1mg to be given PRN with haldol 5mg PRN. Patient denies auditory/visual hallucinations, suicidal/homicidal ideation. Total face to face time:: 25 Mental Status Exam - Mental Status Exam Alert and Oriented to: Time, Place, Person Cognitive Function: Good Patient Appearance: Well Groomed Mood: Withdrawn Affect: Mood Congruent Patient Behavior: Fatigued, Cooperative Speech Pattern: Appropriate Voice Loudness: Normal Thought Process: Goal Oriented Thought Disorder: Not Present Hallucinations: Denies Suicidal Ideation: Denies Homicidal Ideation: Denies Insight/Judgement: Poor Sleep: Fair Appetite: Fair Muscle strength/Tone: Normal Gait/Station: Normal Psychiatric Treatment Plan - Problem List (1) Benzodiazepine dependence Comment: . (2) Cocaine dependence Comment: . (3) Marijuana dependence Comment: . (4) Nicotine dependence Qualifiers: Nicotine product type: cigarettes Substance use status: uncomplicated Qualified Code(s): F17.210 - Nicotine dependence, cigarettes, uncomplicated Comment: . (5) Schizoaffective disorder, bipolar type Comment: . (6) Substance induced mood disorder Comment: .
[2019-12-07] MEDS: BENZTROPINE MESYLATE 1 MG TABLET PO PRN ×2 (15:09→18:46)
[2019-12-07] MEDS ORDERED: TUBERCULIN PPD 5 TU/0.1ML VIAL ID ONE (15:41)
[2019-12-07] MEDS: traZODone HCL 100 MG TABLET (FP) PO SCH (23:39)
[2019-12-07] MEDS: THIAMINE HCL 100 MG TABLET (FP) PO SCH (23:40)
[2019-12-08] MEDS ORDERED: PT OWN MED DRAWER 7, Y5N ONE ×2 (06:18→15:43)
[2019-12-08 07:13] VITALS: TEMP 97.8
[2019-12-08] MEDS: HALOPERIDOL 5 MG TABLET PO PRN ×3 (07:48→21:07)
[2019-12-08] MEDS: BENZTROPINE MESYLATE 1 MG TABLET PO PRN ×3 (07:48→21:06)
[2019-12-08] MEDS: PRENATAL VITAMINS W/ FOLIC ACID TABLET (FP) PO SCH (10:23)
[2019-12-08] MEDS: DIVALPROEX SODIUM 250 MG TABLET E.C. PO SCH ×2 (10:26→21:06)
[2019-12-08] MEDS: OLANZapine 10 MG TABLET PO SCH (10:26)
[2019-12-08] MEDS: NICOTINE 14 MG/24 HOURS TOPICAL PATCH TD SCH (10:26)
[2019-12-08] MEDS: MAG HYDROX/AL HYDROX/SIMETH 30 ML UNIT-DOSE CUP PO PRN ×2 (10:27→23:16)
--- NOTE | 2019-12-08 16:18 | PN ---
Psychiatric Progress Note Vital Signs: Vital Signs Period Temp Pulse Resp BP Sys/Valencia Pulse Ox Last 24 Hr 97.8 F 98 18-18 125/88 Date of Session: 12/08/19 Chief Complaint:: " I do not want to hurt myself. I had an argument with one of the girls." HPI: Day 5 of rehabilitation treatment at [address] Wash Operator is called by nurse to see this patient who, last night, had a verbal argument with another peer and was allegely heard making threat of suicide while talking on the telephone with her fiance. ROS: Patient is alert, coherent, conversant, fully oriented. Ambulatory. Steady gait. No somatic complaint offered at time of this examination. Current Medications: Active Medications Generic Name Dose Route Start Last Admin Trade Name Freq PRN Reason Stop Dose Admin Acetaminophen 650 mg 12/03/19 21:25 Tylenol - PO Q4H PRN FEVER Al Hydroxide/Mg Hydroxide 30 ml 12/03/19 21:25 12/08/19 10:27 Mylanta Oral Suspension - PO 30 ml Q6H PRN Administration DYSPEPSIA Benztropine Mesylate 1 mg 12/07/19 13:08 12/08/19 15:48 Cogentin - PO 1 mg Q8H PRN Administration EPS Divalproex Sodium 250 mg 12/04/19 22:00 12/08/19 10:26 Depakote - PO 250 mg BID VELASQUEZ Administration Eucalyptus/Menthol/Phenol/Sorbitol 1 each 12/03/19 21:25 Cepastat Lozenge - MM Q4H PRN SORE THROAT Guaifenesin 10 ml 12/03/19 21:25 Robitussin - PO Q6H PRN COUGH Haloperidol 5 mg 12/04/19 16:51 12/08/19 15:48 Haldol - PO 5 mg Q8H PRN Administration AGITATION Ibuprofen 400 mg 12/03/19 21:25 Motrin - PO Q6H PRN Pain level 4-6 Loperamide HCl 4 mg 12/03/19 21:25 Imodium - PO Q6H PRN DIARRHEA Magnesium Citrate 300 ml 12/03/19 21:25 Citroma - PO Q48H PRN CONSTIPATION Magnesium Hydroxide 30 ml 12/03/19 21:25 Milk Of Magnesia - PO DAILY PRN CONSTIPATION Melatonin 5 mg 12/03/19 22:00 12/03/19 22:39 Melatonin PO 5 mg HS PRN Administration INSOMNIA Nicotine 14 mg 12/04/19 10:00 12/08/19 10:26 Nicoderm Patch - TD 14 mg DAILY VELASQUEZ Administration Nicotine Polacrilex 2 mg 12/03/19 21:25 Nicorette Gum - BUC Q2H PRN NICOTINE REPLACEMENT RX Olanzapine 10 mg 12/05/19 10:00 12/08/19 10:26 Zyprexa - PO 10 mg DAILY VELASQUEZ Administration Multivit/Folic Acid/Iron 1 tab 12/04/19 10:00 12/08/19 10:23 Vitamins (Sjr) - PO 1 tab DAILY VELASQUEZ Administration Pseudoephedrine/Triprolidine 1 combo 12/03/19 21:25 Actifed - PO TID PRN NASAL CONGESTION Thiamine HCl 100 mg 12/03/19 22:00 12/07/19 23:40 Vitamin B1 - PO Not Given HS VELASQUEZ Trazodone HCl 100 mg 12/04/19 22:00 12/07/19 23:39 Desyrel - PO Not Given HS VELASQUEZ Medication(s) Change(s): haldol 5 mg po q 8 h prn is discontinued (in view of patient's frequent requests for that medication + report of oculogyric crisis on 12/07/19). Cogentin is maintained for now. Medications are, again, reviewed with patient. She confirms that, at , prior to this [facility] visit, she has been treated with a regimen of olanzapine + depakote + haloperidol prn. Side effects/benefits revisited with patient in this follow-up examination. Current Side Effect: No Lab tests ordered: No Lab tests reviewed: Yes (noted sub-therapeutic level of valproic acid.) Provider note:: Chart reviewed. Case discussed with nurse Sima Finch. Patient has signed consent for release of information from . Response pending. Consult note of 12/07/19, by director of marketing operations Lydia Cotton : read and appreciated. Multidisciplinary notes (counselor + nurses + social and political studies professor) aknowledged. Patient is interviewed in the presence of a female nursing services manager, Lobo (with patient's verbal consent). Ms Long admits to having the verbal confrontation with her peer. She reports that, since her admission to this unit, she has been the subject of " mockery " by that particular individual who has continued to make negative comments about patient' s gait (physical injury from her fall months ago). Patient indicates that she got upset. " I am tired of people making fun of me because of a disability. They are not better than me. It is not nice to be talking behind people's backs. " Ms Long states that she is committed to complete this program because " it will have a positive impact on my chances for housing." She comments that " staying here protects me from relapsing into drug use and reducing my chances for housing." Patient is noted as a clear communicator, goal -directed and future-oriented. She exhibits NO evidence of psychotic symptoms. Mood is somewhat anxious. Patient denies suicidal or homicidal ideation, intent or plan. Good response to benztropine mesylate (acute EPS resolved). Adequate personal hygiene. Reassurance and support provided in this session. Patient is found receptive to teaching. Stable mental statius. See MSE report for details. Psychiatry-Liaison will follow. Total face to face time:: 35 Mental Status Exam - Mental Status Exam Alert and Oriented to: Time, Place, Person Cognitive Function: Good Patient Appearance: Well Groomed Mood: Anxious, Hopeful Affect: Mood Congruent, Constricted (mildly constricted) Patient Behavior: Appropriate, Cooperative Speech Pattern: Clear, Appropriate Voice Loudness: Normal Thought Process: Goal Oriented Thought Disorder: Not Present Hallucinations: Denies Suicidal Ideation: Denies Homicidal Ideation: Denies Insight/Judgement: Fair Sleep: Fair Appetite: Good Gait/Station: Other ([place] with a limp) Psychiatric Treatment Plan - Problem List (1) Schizoaffective disorder, bipolar type Current Visit: Yes Comment: . (2) Benzodiazepine dependence Current Visit: Yes Comment: . (3) Cocaine dependence Current Visit: Yes Comment: . (4) Marijuana dependence Current Visit: Yes Comment: . (5) Nicotine dependence Current Visit: Yes Qualifiers: Nicotine product type: cigarettes Substance use status: uncomplicated Qualified Code(s): F17.210 - Nicotine dependence, cigarettes, uncomplicated Comment: . (6) Substance induced mood disorder Current Visit: Yes Comment: . (7) Insomnia Current Visit: Yes Comment: .
[2019-12-08] MEDS: THIAMINE HCL 100 MG TABLET (FP) PO SCH (21:06)
[2019-12-08] MEDS: traZODone HCL 100 MG TABLET (FP) PO SCH (21:06)
[2019-12-09] MEDS ORDERED: PT OWN MED DRAWER 7, Y5N ONE (06:18)
[2019-12-09] MEDS: BENZTROPINE MESYLATE 1 MG TABLET PO PRN (07:53)
[2019-12-09] MEDS: HALOPERIDOL 5 MG TABLET PO PRN (07:53)
[2019-12-09 07:56] VITALS: BP 124/77; PULSE 94
[2019-12-09] MEDS: MAG HYDROX/AL HYDROX/SIMETH 30 ML UNIT-DOSE CUP PO PRN (08:44)
[2019-12-09] MEDS: OLANZapine 10 MG TABLET PO SCH (09:27)
[2019-12-09] MEDS: PRENATAL VITAMINS W/ FOLIC ACID TABLET (FP) PO SCH (09:27)
[2019-12-09] MEDS: DIVALPROEX SODIUM 250 MG TABLET E.C. PO SCH (09:27)
[2019-12-09] MEDS: NICOTINE 14 MG/24 HOURS TOPICAL PATCH TD SCH (09:28)
[2019-12-09] MEDS ORDERED: PANTOPRAZOLE 40 MG TABLET PO SCH (11:30)
[2019-12-09] MEDS ORDERED: BENZTROPINE MESYLATE 1 MG TABLET PO PRN (11:38)
[2019-12-09] MEDS ORDERED: HALOPERIDOL 5 MG TABLET PO PRN (11:39)
[2019-12-09] MEDS ORDERED: hydrOXYzine PAMOATE 50 MG CAPSULE (FP) PO PRN (11:42)
--- NOTE | 2019-12-09 14:12 | PN ---
[facility] Progress Note Note: Psychiatric nurse practitioner note: Patient seen concerning medication changes. Patient alert +oriented X3 but mildly irritable. Patient continues to report her frustration from her stay in rehab. Stated to underwriter solicitation director, " I don't like the girls here. They are rude and talk bad about me and i do not like it." Patient states that she is trying to stay focused on completing the program but is contemplating if she should leave early as she is not getting along with her peers. Patient given positive reassurace but continues to perseverate on how her colleagues are treating her. Medications discussed with patient. Patient unwilling to accept a higher dose of depakote for mood stabilization. Patient only willing to accept depakote 250mg BID. Haldol 5mg q8h decreased to haldol 5mg q12h. Patient upset with change in medication but it was noted that patient was over utilizing haldol for "anxiety". Patient does not presently present with psychotic symptoms. The addition of vistaril 50mg q6h was discussed with patient but she refuses to accept vistaril as she states it is ineffective. Patient only willing to accept what was given to her by her provider and [facility]. [facility] contacted at [phone] then dialed [phone] for Medical records department. Contact with department was unsuccessful. Will continue current medication regimen of Zyprexa 10mg + Depakote 250mg BID + Haldol 5mg Q12H + Cogentin 1mg Q12H. Time spend with patient: 25 minutes
--- NOTE | 2019-12-09 14:43 | DS ---
[facility] Rehab Discharge Summary - [facility] Rehab Discharge Summary Admission Date: 12/03/19 Discharge Date: 12/09/19 - History Present History: Cannabis dependence, Cocaine dependence, Sedative dependence Pertinent Past History: 29 years old female with 6 years history of benzodiazepine, cocaine and marijuana dependence. Patient was admitted to Rehab. in May 2019 and left after 4 days. She reports medical history of GERD and psych history of borderline personality disorder and schizophrenia. She denies suicidal ideation at this time. Patient is unemployed and reports that she resides with a friend - Discharge Physical Exam Vital Signs: Vital Signs Temperature 97.8 F 12/09/19 07:02 Pulse Rate 94 H 12/09/19 07:02 Respiratory Rate 18 12/09/19 07:02 Blood Pressure 124/77 12/09/19 07:02 O2 Sat by Pulse Oximetry (%) Pertinent Admission Physical Exam Findings: General Appearance: no apparent distress HEENTM: normocephalic, PERRLA, Respiratory: Lungs Clear, Neck: supple, Abdominal: +Bowel Sounds, Soft Musculoskeletal: Full weight bearing, full ROM Neurological: Alert, CN 2-12 intact, - Treatment Discharge Condition: Discharge condition good (Patient will go to the [facility]. Medically stable for discharge.) Hospital Course: Patient attended groups, had 1:1 with her counselor. Was seen by psychiatric services because she had one incident of oculargyrations, which resulted in the addition of cogentin to her regimen and in addition, some verbal altercations with other patients in which she verbalized intent to harm herself. However, upon evaluation, she indicated she would not harm herself. She had no acute medical problems while in rehab. - Medication Discharge Medications: Ambulatory Orders Divalproex Sodium [Depakote] 250 mg PO DAILY 12/03/19 Haloperidol [Haldol -] 5 mg PO TID PRN 12/03/19 Olanzapine [Zyprexa] 10 mg PO DAILY 12/03/19 traZODone HCL [Trazodone HCl] 100 mg PO HS 12/03/19 - Medication-Assisted Treatment (MAT) Medication-Assisted Treatment (MAT): No - Discharge Instructions Diet, activity, other medical instructions: Diet: as tolerated Activity: as tolerated Other medical instructions: Please follow up with medical care, psychiatric care , and [facility]. - Diagnosis (1) Benzodiazepine dependence Current Visit: Yes Status: Chronic (2) Cocaine dependence Current Visit: Yes Status: Chronic (3) Marijuana dependence Current Visit: Yes Status: Chronic - Follow-up Referral Minutes to complete discharge: 20 - AMA Did Patient Leave Against Medical Advice: No
--- NOTE | 2019-12-09 14:55 | PN ---
[facility] Progress Note Note: Psychiatric nurse practitioner note: Patient being discharged today (12/09/19). A 30 day supply of Zyprexa 10mg + Depakote 250mg BID + Trazodone 100mg was electronically sent to [facility] at [address] [place] [address].
[2019-12-09] MEDS ORDERED: DIVALPROEX SODIUM 250 MG TABLET E.C. PO SCH ×2 (22:00)
== END 2019-12-09 15:09 | disposition home or self-care (01) | DRG 772 ==
LOC: YASAS 16:59 → Y3E 21:31
PROVIDERS: ADMIT Allergy & Immunology; ATTEND Allergy & Immunology
PROC: HZ42ZZZ Group Counseling for Substance Abuse Treatment, Cognitive-Behavioral (ICD-10-PCS; principal; 2019-12-03)
DX: F13.20 Sedative, hypnotic or anxiolytic dependence, uncomplicated (principal); F14.20 Cocaine dependence, uncomplicated; F12.20 Cannabis dependence, uncomplicated; F17.210 Nicotine dependence, cigarettes, uncomplicated; F25.0 Schizoaffective disorder, bipolar type; F19.24 Other psychoactive substance dependence with psychoactive substance-induced mood disorder; F60.3 Borderline personality disorder; K21.9 Gastro-esophageal reflux disease without esophagitis; Z91.19 Patient's noncompliance with other medical treatment and regimen
CPT/HCPCS: 36415; 80053; 80164; 81003; 81025; 85027; 86593; 93005; 93010

== ENCOUNTER 2024-01-29 17:32 | Inpatient (IN) | payer BC ==
[2024-01-29 19:45] VITALS: BMI 28.6
[2024-01-29] MEDS ORDERED: guaiFENesin 600 MG TABLET.ER (FP) PO PRN (23:38)
[2024-01-29] MEDS ORDERED: ACETAMINOPHEN 325 MG TABLET (FP) PO PRN (23:38)
[2024-01-29] MEDS ORDERED: POLYETHYLENE GLYCOL (HEALTHYLAX) 3350 17 GM PACKET PO PRN (23:38)
[2024-01-29] MEDS ORDERED: NICOTINE POLACRILEX 2 MG GUM BUC PRN (23:38)
[2024-01-29] MEDS ORDERED: IBUPROFEN 400 MG TABLET (FP) PO PRN (23:38)
[2024-01-29] MEDS ORDERED: BENZOCAINE/MENTHOL (CHLORASEPTIC ) LOZENGE MM PRN (23:38)
[2024-01-29] MEDS ORDERED: LOPERAMIDE HCL 2 MG CAPSULE PO PRN (23:38)
[2024-01-29] MEDS ORDERED: MAG HYDROX/AL HYDROX/SIMETH 30 ML UNIT-DOSE CUP PO PRN (23:38)
[2024-01-29] MEDS ORDERED: P-EPHED 60MG/TRIPROLIDI 2.5MG TABLET PO PRN (23:38)
[2024-01-29] MEDS ORDERED: BENZONATATE 200 MG CAPSULE PO PRN (23:38)
[2024-01-29] MEDS ORDERED: MAGNESIUM HYDROX 2400MG/30ML ORAL SUSPENSION 30 ML CUP PO PRN (23:38)
[2024-01-29] MEDS ORDERED: NICOTINE POLACRILEX 2 MG LOZENGE BC PRN (23:38)
[2024-01-29] MEDS ORDERED: IBUPROFEN 600 MG TABLET (FP) PO PRN (23:38)
[2024-01-30] MEDS: MELATONIN 5 MG TABLETS PO SCH (02:33)
[2024-01-30 06:12] VITALS: RESP 18
[2024-01-30] MEDS: PRENATAL VITAMINS W/ FOLIC ACID TABLET (FP) PO SCH (10:21)
[2024-01-30] MEDS: TUBERCULIN PPD 5 TU/0.1ML SYRINGE (IN PATIENT USE ONLY) ID ONE (10:24)
[2024-01-30 12:26] LABS: HEMATOCRIT 32.7 % (32.4-45.2); MCH 30.8 pg (25.7-33.7); MCHC 33.5 g/dl (32.0-36.0); MEAN CELL VOLUME 91.7 fl (80-96); MEAN PLT VOLUME 9.5 fl (7.5-11.1); PLATELET COUNT 186 10^3/uL (134-434); RBC 3.56 M/mm3 (3.60-5.2); RDW 14.2 % (11.6-15.6); WHITE BLOOD COUNT 9.6 K/mm3 (4.0-10.0)
[2024-01-30 12:45] LABS: POTASSIUM 3.6 mmol/L (3.5-5.1)
[2024-01-30 12:52] LABS: ALBUMIN 3.2 g/dl (3.4-5.0); BLOOD UREA NITROGEN 10.8 mg/dL (7-18); CREATININE 0.6 mg/dL (0.55-1.3)
[2024-01-30 12:53] LABS: BILIRUBIN,TOTAL 0.4 mg/dL (0.2-1); TOT PROT 6.4 g/dl (6.4-8.2)
[2024-01-30 12:55] LABS: CALCIUM 9.4 mg/dL (8.5-10.1)
[2024-01-30 13:20] LABS: SYPHILIS W/ RPR CONF NON-REACTIVE (NONREACTIVE)
[2024-01-30] MEDS: hydrOXYzine PAMOATE 25 MG CAPSULE (FP) PO PRN (21:42)
[2024-01-30] MEDS: THIAMINE HCL 100 MG TABLET (FP) PO SCH (21:42)
[2024-01-31 07:30] VITALS: BP 141/86; PULSE 87; TEMP 97.2
[2024-01-31 13:11] LABS: URINE APPEARANCE TURBID; URINE BILIRUBIN NEGATIVE (NEGATIVE); URINE COLOR YELLOW; URINE GLUCOSE (UA) NEGATIVE (NEGATIVE); URINE KETONE NEGATIVE (NEGATIVE); URINE LEUK ESTERASE NEGATIVE (NEGATIVE); URINE NITRITE NEGATIVE (NEGATIVE); URINE PROTEIN NEGATIVE (NEGATIVE); URINE UROBILINOGEN 0.2 mg/dL (0.2-1.0)
== END 2024-01-31 11:00 | disposition left against medical advice (07) | DRG 770 ==
LOC: YASAS 17:32 → Y3NR 01-30 01:33 → Y5N 01-30 12:56
PROVIDERS: ADMIT Allergy & Immunology; ATTEND Psychiatry & Neurology Pain Medicine
PROC: HZ42ZZZ Group Counseling for Substance Abuse Treatment, Cognitive-Behavioral (ICD-10-PCS; principal; 2024-01-30)
DX: F14.20 Cocaine dependence, uncomplicated (principal); F12.20 Cannabis dependence, uncomplicated; F17.210 Nicotine dependence, cigarettes, uncomplicated; F41.9 Anxiety disorder, unspecified; F32.A Depression, unspecified; R26.89 Other abnormalities of gait and mobility
CPT/HCPCS: 36415; 80053; 80305; 81003; 81025; 85027; 86780; 86803; 87635; 87811